=== PATIENT | female | born 1980 ===

== ENCOUNTER → 2023-10-02 | Outpatient (CLI) | payer SELFPAY ==
[2023-10-12 18:50] LABS: HPV HIGH RISK BY TMA Not Detected; HPV SOURCE Cervical
== END ==
LOC: LAB 11:02 → LAB SHORT 11:02
PROVIDERS: Obstetrics & Gynecology
DX: Z01.419 Encounter for gynecological examination (general) (routine) without abnormal findings (principal)
CPT/HCPCS: 87624; G0123